=== PATIENT | female | born 1960 | race Caucasian/White ===

== ENCOUNTER 2018-12-08 13:36 | Emergency (ER) | payer OTHER ==
[~2018-12-08] VITALS: Ht 149.9 cm; Wt 44.0 kg
--- NOTE | 2018-12-08 13:58 | NUR ---
PT BROUGHT IN BY [facility] FOR C/O CHEST TIGHTNESS, NON RADIATING W/ DIZZINESS X 2 DAYS. DENIES N/V WILL CONTINUE TO MONITOR
[2018-12-08 13:59] LABS: BASOPHILS % (AUTO) 0.2 % (0.0-2.0); EOSINOPHILS % (AUTO) 0.1 % (0.0-6.0); HEMATOCRIT 41 % (33-45); HEMOGLOBIN 14.1 g/dL (11.5-14.8); LYMPHOCYTES # (AUTO) 1.4 /CMM (0.8-4.8); LYMPHOCYTES % (AUTO) 23.3 % (20.0-44.0); MEAN CORPUSCULAR HGB CONC 34 g/dl (31.0-36.0); MEAN CORPUSCULAR VOLUME 94 fL (82-100); MONOCYTES # (AUTO) 0.4 /CMM (0.1-1.30); MONOCYTES % (AUTO) 6.7 % (2.0-12.0); NEUTROPHILS # (AUTO) 4.1 /CMM (1.8-8.9); NEUTROPHILS % (AUTO) 69.7 % (43.0-81.0); PLATELET COUNT (AUTO) 271 /CMM (150-450); WHITE BLOOD COUNT (AUTO) 5.9 K/uL (4.3-11.0)
[2018-12-08 14:06] LABS: CALCIUM, SERUM 8.6 mg/dL (8.5-10.1); CARBON DIOXIDE 27 mmol/L (21-32); CHLORIDE 101 mmol/L (98-107); CREATININE 0.7 mg/dL (0.6-1.3); GLUCOSE 177 mg/dL (74-106); POTASSIUM 3.1 mmol/L (3.5-5.1); SODIUM SERUM 139 mmol/L (136-145); UREA NITROGEN, BLOOD 11 mg/dL (7-18)
[2018-12-08 14:19] LABS: ALANINE AMINOTRANSFERASE 78 U/L (12-78); ALBUMIN 3.6 g/dL (3.4-5.0); ALKALINE PHOSPHATASE 92 U/L (46-116); ASPARTATE AMINOTRANSFERASE 35 U/L (15-37); B-TYPE NATRIURETIC PEPTIDE 78 PG/ML (0-125); BILIRUBIN,DIRECT 0.1 mg/dL (0.0-0.2); BILIRUBIN,TOTAL 0.3 mg/dL (0.2-1.0); TOTAL PROTEIN, SERUM 7.6 g/dL (6.4-8.2)
[2018-12-08] MEDS ORDERED: IV NS 0.9% 1,000 ML BAG IV ONE (14:30)
[2018-12-08] MEDS ORDERED: ASPIRIN 325 MG TABLET PO ONE (16:30)
[2018-12-08] MEDS ORDERED: ASPIRIN 325 MG TABLET ONE (16:33)
--- NOTE | 2018-12-08 16:40 | NUR ---
AWAITING CALL BACK FOR TRANSFER INFO FROM BENITA ALLISON-
--- NOTE | 2018-12-08 17:04 | NUR ---
PER [facility]BANKS [facility] AWAITING MD TO MD REPORT
--- NOTE | 2018-12-08 17:27 | NUR ---
PT STABLE UP AND BACK TO BATH ROOM PENDING TRANSFER TO [facility]
--- NOTE | 2018-12-08 18:20 | NUR ---
TRANSFER INFO: [facility] 611-A RN FOR REPORT [phone]
[2018-12-08] MEDS ORDERED: POTASSIUM CHLORIDE 20 MEQ TAB.PRT.SR PO ONE ×2 (18:30→18:32)
--- NOTE | 2018-12-08 18:52 | NUR ---
ATTEMPTED TO CALL REPORT TO [facility] AND WAS TOLD NURSES ARE IN ENDORSEMENT TIME PT ADMITTED TO ROOM 611-A TELEPHONE
--- NOTE | 2018-12-08 19:11 | NUR ---
ADMITTING MD ALEJANDRO FROM [facility]
--- NOTE | 2018-12-08 19:17 | NUR ---
SPOKE TO [facility] ETA FOR AMBULANCE WILL CALL BACK
--- NOTE | 2018-12-08 19:42 | NUR ---
[facility] ETA [address] PER CM MAGDI WILL TRY TO EXPEDITE IF POSSIBLE
--- NOTE | 2018-12-08 21:26 | NUR ---
REPORT GIVEN TO POORNIMA SOUTH AT [facility]
[2018-12-08 21:50] VITALS: BP 128/58
== END 2018-12-08 21:52 | disposition short-term general hospital (02) ==
LOC: ER 13:40 → EDSEX 13:40 → ER 21:52
DX: R07.89 Other chest pain (principal); R00.0 Tachycardia, unspecified; E78.5 Hyperlipidemia, unspecified
CPT/HCPCS: 36415; 71045; 80048; 80076; 83880; 84484; 85025; 85378; 87081; 93005; 99285; J7030